=== PATIENT | female | born 1965 | race Caucasian/White ===

== ENCOUNTER 2019-12-29 18:39 | Emergency (ER) | payer BC ==
--- OUTSIDE RECORDS SUMMARY | 2019-12-29 19:21 | XMS REPORT | Summary of Care ---
:1965 Author Organization [facility] Address [address] [place] [address] Care Team Providers Name Role Phone Maribel Jimenez Primary Care Provider Reason for Referral Refer to Department Only (Routine) Status Reason Specialty Diagnoses / Referred By Referred To Procedures Contact Contact Pending Review Gastroenterology Diagnoses Right upper quadrant abdominal pain Maribel Jimenez [place] MD Gastroenterolog [address] y/Hepatology [place] [address] [employer] [address] [address] Phone: [place], [place] [phone] Fax: Scheduling Instructions BP 122/80 | Pulse 70 | Temp 98.3 F (36.8 C) | Ht 5' 3" (1.6 m) | Wt 161 lb 1.6 oz (73.1 kg) | LMP 07/26/2016 | SpO2 98% | BMI 28.54 kg/m BMI Readings from Last 4 Encounters: 12/04/19 : 28.54 kg/m 11/26/19 : 28.52 kg/m 10/07/19 : 28.80 kg/m 09/10/19 : 28.68 kg/m Controlled Substance Medications: Anticoagulant Medications: Psychiatric/Antianxiety Medications: escitalopram Antiretroviral Medications: Refer to Department Only (Routine) Status Reason Specialty Diagnoses / Referred By Referred To Procedures Contact Contact Pending Review Gastroenterology Diagnoses Right upper quadrant abdominal pain Maribel Jimenez [place] MD Gastroenterolog [address] y/Hepatology [place] [address] [employer] [address] [address] Phone: [place], [place] [phone] Fax: Scheduling Instructions BP 122/80 | Pulse 70 | Temp 98.3 F (36.8 C) | Ht 5' 3" (1.6 m) | Wt 161 lb 1.6 oz (73.1 kg) | LMP 07/26/2016 | SpO2 98% | BMI 28.54 kg/m BMI Readings from Last 4 Encounters: 12/04/19 : 28.54 kg/m 11/26/19 : 28.52 kg/m 10/07/19 : 28.80 kg/m 09/10/19 : 28.68 kg/m Controlled Substance Medications: Anticoagulant Medications: Psychiatric/Antianxiety Medications: escitalopram Antiretroviral Medications: Reason for Visit Reason Comments Sick nausea right upper abdomen pain (UA negative) Encounter Details Date Type Department Care Team Description 12/04/2019 Office Visit [facility] CrepetMaribel MD Right upper quadrant Medicine [address] [facility] abdominal pain [address] [place] [address] (Primary Dx) [place] [address] [phone] Allergies Active Allergy Reactions Severity Noted Date Comments Hydrochlorothiazide Other 10/07/2019 Disrupt sleep Phentermine [employer]GR[employer]ER Reaction 07/24/2012 Itchy,tingly fingers of arm and legs documented as of this encounter (statuses as of 12/04/2019) Medications Medication Sig Dispensed Refills Start Date End Date Status Cholecalciferol (VITAMIN Take 2,000 0 Active D) 1000 UNITS Oral Cap Units by mouth DAILY. lidocaine transdermal 1 Patch by 0 Active patch (LIDODERM) 5 % Topical route Apply externally Patch DAILY. 12 hours on and 12 hours off Magnesium 500 MG Oral Cap Take by mouth. 0 Active VALacyclovir 1 g Oral Tab Take 1 Tab by 14 Tab 0 04/27/2018 Active mouth EVERY TWELVE HOURS. B Complex Vitamins Take 1 Dose by 0 Active (VITAMIN B COMPLEX mouth DAILY. PO)Indications: Vitamin B 12 deficiency cyclobenzaprine Take 1 Tab by 60 Tab 1 09/23/2018 Active (FLEXERIL) 10 MG Oral mouth THREE TabIndications: TIMES DAILY Arthralgia of left NEEDED for acromioclavicular joint Muscle Spasm . lisinopril (PRINIVIL, Take 1 Tab by 90 Tab 3 06/18/2019 Active ZESTRIL) 20 MG Oral Tab mouth DAILY. Additional Information Patient taking differently: 10 mg Oral DAILY, Reported on 10/07/2019 11:11 AM albuterol HFA (VENTOLIN) 108 Take 2 Puffs by 1 Inhaler 3 09/10/2019 Active (90 Base) MCG/ACT Inhalation inhalation EVERY SIX Aero SolnIndications: Cough HOURS NEEDED (Cough / wheeze / tightness). diltiazem (DILTIAZEM CD) 120 Take 1 Cap by mouth 90 Cap 3 10/07/2019 Active MG Oral CAPSULE SR 24 DAILY. HRIndications: Essential hypertension escitalopram (LEXAPRO) 10 MG Take 1 Tab by mouth 90 Tab 2 10/07/2019 Active Oral TabIndications: DAILY. Depression, unspecified depression type documented as of this encounter (statuses as of 12/04/2019) Active Problems Problem Noted Date Cough variant asthma 09/10/2019 JB (obstructive sleep apnea) 01/09/2019 Overview: CPAP Through [employer] [place] [facility] [place] years ago Sprain of left ankle 08/04/2016 Gastroparesis 02/11/2016 Overview: Noted incidentally gallbladder ultrasound ambar Schatzki's ring of distal esophagus 02/11/2016 Overview: Addressed at upper endoscopy - Trupti 01/04 Closed nondisplaced fracture of lateral malleolus of left fibula with 2015 routine healing Vasovagal syncope 01/12/2016 Closed fracture of lateral malleolus of left fibula 01/04/2016 Essential hypertension 09/12/2010 Overview: Care plan done 12/07 Cerebral microvascular disease 07/29/2010 Migraine 10/02/2008 Dysplasia of cervix 10/02/2008 Polycystic ovary syndrome documented as of this encounter (statuses as of 12/04/2019) Immunizations Name Administration Dates Next Due Influenza (IM) Preservative Free 09/10/2019, 08/16/2015, 10/08/2014, 09/12/2010 Influenza Vaccine Whole 07/09/2013 MMR VACCINE 01/29/2013 TDAP Vaccine 10/23/2012 documented as of this encounter Social History Tobacco Use Types Packs/Day Years Used Date Never Smoker Smokeless Tobacco: Never Used Alcohol Use Drinks/Week oz/Week Comments Yes 0 Standard drinks or equivalent 0.0 Alcohol Habits Answer Date Recorded How often do you have a drink containing 4 or more times a week 11/26/2018 alcohol? How many drinks containing alcohol do you have Not asked on a typical day when you are drinking? How often do you have six or more drinks on one Not asked occasion? Sex Assigned at Date Recorded Not on file documented as of this encounter Last Filed Vital Signs Vital Sign Reading Time Taken Comments Blood Pressure 122/80 12/04/2019 1:33 PM EST Pulse 70 12/04/2019 1:33 PM EST Temperature 36.8 12/04/2019 1:33 PM EST C (98.3 F) Respiratory Rate - - Oxygen Saturation 98% 12/04/2019 1:33 PM EST Inhaled Oxygen Concentration - - Weight 73.1 kg (161 lb 1.6 oz) 12/04/2019 1:33 PM EST Height 160 cm (5' 3") 12/04/2019 1:33 PM EST Body Mass Index 28.54 12/04/2019 1:33 PM EST documented in this encounter Progress Notes Maribel Jimenez MD - 12/04/2019 2:00 PM EST NAME:Monika Ramachandran 1965: 1965 ENC Date: 12/04/2019 CC: Chief Complaint Patient presents with ? Sick nausea right upper abdomen pain (UA negative) Monika Ramachandran is a 54-y.o. female Ongoing complaints of abdominal discomfort : Recurrent episodes over the years - Last visit : several weeks of discomfort Years of flare ups of the right abdominal pain - has had ultrasounds in the past - This episode has been prolonged - Hot / burining sensation in the mid lower abdomen -- Low grade uncomfortable pain - No change in diet- ( elminating sugar ) ? sleeping on the back - ? Bowel movement ok / no cough - No association with foods History of Csections - Ct scan shows small bilateral femoral hernias ( right more than left ) ; stool throughout ; Severeintervertebral disk disease at L3-4 Current Outpatient Medications Medication Sig ? albuterol HFA (VENTOLIN) 108 (90 Base) MCG/ACT Inhalation Aero Soln Take 2 Puffs by inhalation EVERY SIX HOURS NEEDED (Cough / wheeze / tightness ). ? B Complex Vitamins (VITAMIN B COMPLEX PO) Take 1 Dose by mouth DAILY. ? Cholecalciferol (VITAMIN D) 1000 UNITS Oral Cap Take 2,000 Units by mouth DAILY. ? cyclobenzaprine (FLEXERIL) 10 MG Oral Tab Take 1 Tab by mouth THREE TIMES DAILY NEEDED for Muscle Spasm . ? diltiazem (DILTIAZEM CD) 120 MG Oral CAPSULE SR 24 HR Take 1 Cap by mouth DAILY. ? escitalopram (LEXAPRO) 10 MG Oral Tab Take 1 Tab by mouth DAILY. ? lidocaine transdermal patch (LIDODERM) 5 % Apply externally Patch 1 Patch by Topical route DAILY. 12 hours on and 12 hours off ? lisinopril (PRINIVIL, ZESTRIL) 20 MG Oral Tab Take 1 Tab by mouth DAILY. (Patient taking differently: Take 10 mg by mouth DAILY.) ? Magnesium 500 MG Oral Cap Take by mouth. ? VALacyclovir 1 g Oral Tab Take 1 Tab by mouth EVERY TWELVE HOURS. No current facility-administered medications for this visit. Patient Active Problem List Diagnosis Date Noted ? Cough variant asthma 09/10/2019 ? JB (obstructive sleep apnea) 01/09/2019 CPAP Through [employer] [place] [facility] [place] ago ? Sprain of left ankle 08/04/2016 ? Gastroparesis 02/11/2016 Noted incidentally gallbladder ultrasound stearns ? Schatzki's ring of distal esophagus 02/11/2016 Addressed at upper endoscopy - Trupti 01/04 ? Closed nondisplaced fracture of lateral malleolus of left fibula with routine healing 01/14/2016 ? Vasovagal syncope 01/12/2016 ? Closed fracture of lateral malleolus of left fibula 01/04/2016 ? Essential hypertension 09/12/2010 Care plan done 12/07 ? Cerebral microvascular disease 07/29/2010 ? Migraine 10/02/2008 ? Dysplasia of cervix 10/02/2008 ? Polycystic ovary syndrome Family History Problem Relation Age of Onset ? Hypertension Mother ? Arthritis Mother ? GI Mother ? Thyroid Mother ? Stroke Mother ? Alcohol/Drug Father No cardiopulmonary symptoms No upper or lower GI complaints No urinary tract symptoms. No bruising/ bleeding. No neurological complaints . No insomnia.+ . Social History Tobacco Use ? Smoking status: Never Smoker ? Smokeless tobacco: Never Used Substance Use Topics ? Alcohol use: Yes Alcohol/week: 0.0 standard drinks Frequency: 4 or more times a week ? Drug use: No OBJECTIVE: BP 122/80 | Pulse 70 | Temp 98.3 F (36.8 C) | Ht 5' 3" (1.6 m) | Wt 161 lb 1.6 oz (73.1 kg) | LMP 07/26/2016 | SpO2 98% | BMI 28.54 kg/m . Heent neg Neck no JVD, thyromegaly or bruit Lungs Clear CV rrr Tender to palpation R CVA Diffuse mild distention - Nontender to palpation over the lower abdomen - Femoral Hip rotation ok - Nontender to palpation over the spine- Abd soft, nontender, no organomegaly Ext no edema; no lesions; pulses intact Neuro: intellect intact ; motor including gait unremarkable A/P ICD-9-CM ICD-10-CM 1. Right upper quadrant abdominal pain 789.01 R10.11 URINE DIP MANUAL (AMB POCT ) HEPATITIS C ANTIBODY HEPATITIS C ANTIBODY REFER TO GI REFER TO GI Work up to this point unrevealing- Ct scan full of stool / bilateral small femoral hernias - Patient worried about mild hepatosplenomegaly There are no Patient Instructions on file for this visit. AUTHOR: Maribel Jimenez MD 14:10 12/04/2019 documented in this encounter Plan of Treatment Date Type Specialty Care Team Description 12/10/2019 Office Visit Internal Medicine Maribel Jimenez MD [address] [place] [address] [phone] 02/04/2020 Office Visit Internal Medicine Maribel Jimenez MD [address] [place] [address] [phone] Name Type Priority Associated Diagnoses Order Schedule HEPATITIS C ANTIBODY Lab Routine Right upper quadrant Expected: 12/04/2019 abdominal pain (Approximate), Expires: 12/04/2020 Name Type Priority Associated Diagnoses Order Schedule REFER TO GI Referral Routine Right upper quadrant Expected: 12/04/2019, abdominal pain Expires: 12/04/2020 REFER TO GI Referral Routine Right upper quadrant Expected: 12/04/2019, abdominal pain Expires: 12/04/2020 Health Maintenance Due Date Last Done Comments PAP SMEAR 11/26/2017 11/26/2014, 10/29/2013 (Postponed), 10/23/2012, Additional history exists LIPID DISORDER SCREENING 02/22/2020 02/21/2019, 11/26/2014, 10/29/2013, Additional history exists DEPRESSION SCREENING 06/18/2020 06/18/2019 MAMMOGRAM (SCREENING) 07/22/2020 07/22/2019, 06/28/2018, 03/15/2017, Additional history exists ZOSTER IMMUNIZATION SERIES 09/10/2020 Postponed from (1 of 2) 2013 (Vaccine not available) PNEUMOCOCCAL 0-64 YRS (1 of 10/07/2020 Postponed from 1 - PPSV23) 1969 (Patient refused) DIABETES SCREENING 11/26/2020 11/26/2019, 02/21/2019, 06/21/2017, Additional history exists DTaP/Tdap/Td Vaccines (2 - 10/23/2022 10/23/2012 Tdap) Colonoscopy 07/30/2023 07/30/2013, 07/30/2013, 07/30/2013, Additional history exists INFLUENZA VACCINE Completed 09/10/2019, 08/16/2015, 10/08/2014, Additional history exists HEPATITIS A IMMUNIZATION Aged Out No longer eligible SERIES based on patient's age to complete this topic HPV IMMUNIZATION SERIES Aged Out No longer eligible based on patient's age to complete this topic MENINGOCOCCAL VACCINE IMM Aged Out No longer eligible based on patient's age to complete this topic documented as of this encounter Goals Goal Patient Goal Associated Recent Patient-Stated? Author Type Problems Progress Blood Pressure Blood Pressure Essential 122/80 No C[place], < 140/90 hypertension (12/04/2019 MD Maribel 1:33 PM EST) Note: Hypertension Care Plan Based on the patient's clinical history and according to JNC 8 guidelines target blood pressure goal is less than 150/90. Based on the patient's last blood pressure of BP: 150/90 mmHg the patient is at above goal. As your provider, it is important that I advise you regarding: your current medications and help you with any challenges you may face taking your medications as directed (ex. instructions, cost, side effects, and interactions). Important lifestyle changes: exercise, weight reduction and dietary sodium reduction your clinical goals and how you can achieve success: weight reduction, exercise plan and diet improvements medication management: adjusted medications as appropriate patient education/self-management tools provided: Yes To successfully manage my Hypertension I will: monitor my blood pressure daily, understanding that my goal is less than 140/ 90 per my healthcare provider's recommendation. I will schedule an appointment with my provider if consistent abnormal readings greater than 160/100. take medications every day as prescribed by my healthcare provider and if unable to take them I will discuss with my provider. monitor for symptoms of chest pain, chest tightness/pressure, irregular heartbeat, persistent dizziness, radiating arm pain, and neck or jaw pain. If any of these symptoms are noticed I will seek medical attention immediately by calling 911 exercise/walk 45 minutes 4 day(s) per week. If I experience chest pain, chest tightness, or shortness of breath, I will seek medical attention immediately. follow a diet rich in fruits, vegetables, and low-fat dairy products with reduced content of saturated & total fat. I will reduce my sodium intake daily. An example is the DASH diet. To obtain more information please refer to the DASH Eating Plan listed in Educational Resources. record my blood pressure results. [employer] is safe and secure way for you to do this in your medical record online. try to obtain an ideal body weight. My recent weight was Weight: 160 lb ( 72.576 kg). My weight loss goal for my next office visit is 5 lbs . limit alcohol consumption. For men two drinks per day and women one drink per day. if currently smoking, will discuss how to quit smoking with my healthcare provider and work towards quitting. Educational Resources: National Heart, Lung, & Blood [place] http://nhlbi.nih.gov/hbp/index.html The DASH Diet Eating Plan http://www.nhlbi.nih.gov/health/health-topics/ topics/dash/ Academy of Nutrition & DIetetics http://eatright.org National Smoking Cessation Site http://smokefree.gov Blood Pressure < 140/90 Blood Pressure 122/80 (12/04/2019 1:33 Maribel Francis MD PM EST) Note: This is an individualized treatment (blood pressure) goal for Monika Morales: Displayed above (on the left) is your goal for blood pressure control. Your most recent blood pressure is also shown above, on the right. You should try to achieve blood pressures that are lower than your goal listed above (on the left). Depression screen (PHQ-9) total score < 5 Depression No Maribel Jimenez MD Note: This is an individualized treatment (depression) goal for Monika Morales: Displayed above is your goal for a depression screening (PHQ-9) score that would indicate good control of your depression. Keep a regular sleep schedule Lifestyle No Maribel Jimenez MD Note: This is an individualized lifestyle goal for Monika Morales: Please maintain a regular sleep schedule. This may help with some symptoms of depression. Take all prescribed medications as directed Self-management No Maribel Jimenez MD Note: This is an individualized self-management goal for Monika Ramachandran: Please take all prescribed medications as directed. 1. Do not skip doses. If you cannot afford your medications, talk with your doctor. 2. Use a pill reminder system such as a pill box if needed. Your pharmacist can help you with this. 3. Contact your Pharmacy 5 days before your medication runs out. If you cannot take your medications for any reasons, talk with your doctor. 4. Please bring all of your medication bottles and inhalers (or a list of all your medications/inhalers) with you to every visit. Potential barriers to meeting all of your care plan goals will continue to be addressed on an ongoing basis. documented as of this encounter Procedures Procedure Name Priority Date/Time Associated Diagnosis Comments URINE DIP MANUAL Routine 12/04/2019 1:37 PM Right upper quadrant Results for this (AMB POCT) EST abdominal pain procedure are in the results section. documented in this encounter Results URINE DIP MANUAL (AMB POCT) (12/04/2019 1:37 PM EST) URINE GLUCOSE (POCT) Negative Negative mg/dl [facility] POCT URINE BILIRUBIN Negative Negative [facility] (POCT) POCT Urine Ketones (POCT) Negative Negative [facility] POCT URINE SPECIFIC 1.005 1.005 - 1.030 [facility] GRAVITY (POCT) POCT URINE BLOOD (POCT) Negative Negative [facility] POCT URINE PH (POCT) 6.5 5.0 - 8.0 [facility] POCT URINE PROTEIN (POCT) Negative Negative mg/dl [facility] POCT URINE UROBILINOGEN 0.2 0.2 - 1.0 mg/dl [facility] (POCT) POCT URINE NITRITES (POCT) Negative Negative [facility] POCT URINE LEUKOCYTES Negative Negative Cells/uL [facility] (POCT) POCT Specimen Urine - Urine specimen (specimen) Performing Organization Address City/State/Zipcode Phone Number [facility] [address] [place] [address] documented in this encounter Visit Diagnoses Diagnosis Right upper quadrant abdominal pain Abdominal pain, right upper quadrant documented in this encounter Insurance Payer Benefit Plan / Subscriber ID Effective Dates Phone Address Type Group BCBS NATIONAL [facility] NATIONAL [id number] 2014-Present Blue Cross/Blue Shield Guarantor Name Account Type Relation to Date of Phone Billing Patient Address Nishant Ramachandran Personal/Family 1965 [address] [phone] [place], [place] (Work) [id number] documented as of this encounter
--- OUTSIDE RECORDS SUMMARY | 2019-12-29 19:21 | XMS REPORT | Summary of Care ---
:1965 Author Organization [facility] Address [address] [place] [address] Care Team Providers Name Role Phone Maribel Jimenez Primary Care Provider Reason for Referral MRI/CAT/PET Scan (Routine) Status Reason Specialty Diagnoses / Referred By Referred To Procedures Contact Contact Pending Review Diagnoses Abdominal pain, unspecified abdominal location Maribel Jimenez MD Procedures CT ABDOMEN PELVIS WITH IV CONTRAST [address] [place] [address] Reason for Visit Reason Comments Abdominal Pain right side radiating to abdomen and left side, belching Encounter Details Date Type Department Care Team Description 11/26/2019 Office Visit [place] [facility] Maribel Jimenez MD Abdominal pain, Medicine [address] [facility] unspecified abdominal [address] [place] [address] location (Primary Dx) [place] [address] [phone] Allergies Active Allergy Reactions Severity Noted Date Comments Hydrochlorothiazide Other 10/07/2019 Disrupt sleep Phentermine [employer] Reaction 07/24/2012 Itchy,tingly fingers of arm and legs documented as of this encounter (statuses as of 11/26/2019) Medications Medication Sig Dispensed Refills Start Date [...] 20 MG Oral Tab mouth DAILY. Additional information Patient taking differently: 10 mg Oral DAILY, Reported on 10/07/2019 11:11 AM albuterol HFA Take 2 Puffs by 1 Inhaler 3 09/10/2019 Active (VENTOLIN) 108 (90 inhalation EVERY Base) MCG/ACT SIX HOURS Inhalation Aero NEEDED (Cough / SolnIndications: Cough wheeze / tightness). diltiazem (DILTIAZEM Take 1 Cap by 90 Cap 3 10/07/2019 Active CD) 120 MG Oral mouth DAILY. CAPSULE SR 24 HRIndications: Essential hypertension escitalopram (LEXAPRO) Take 1 Tab by 90 Tab 2 10/07/2019 Active 10 MG Oral mouth DAILY. TabIndications: Depression, unspecified depression type escitalopram (LEXAPRO) Take 1 Tab by 60 Tab 1 09/10/201911/26/ 10 MG Oral mouth DAILY. 2019 (Duplicate Order) TabIndications: Depression, unspecified depression type documented as of this encounter (statuses as of 11/26/2019) Active Problems Problem Noted Date Cough variant asthma 09/10/2019 JB (obstructive sleep apnea) 01/09/2019 Overview: CPAP Through [employer] [place] [facility] [place] Sprain of left ankle [...] as of this encounter (statuses as of 11/26/2019) Immunizations Name Administration Dates Next Due Influenza [...] Assigned at Date Recorded Not on file Job Start Date Occupation Industry Not on file Not on file Not on file Travel History Travel Start Travel End No recent travel history available. documented as of this encounter Last Filed Vital Signs Vital Sign Reading Time Taken Comments Blood Pressure 130/82 11/26/2019 2:42 PM EST Pulse 79 11/26/2019 2:42 PM EST Temperature 36.9 11/26/2019 2:42 PM EST C (98.4 F) Respiratory Rate - - Oxygen Saturation 98% 11/26/2019 2:42 PM EST Inhaled Oxygen Concentration - - Weight 73 kg (161 lb) 11/26/2019 2:42 PM EST Height 160 cm (5' 3") 11/26/2019 2:42 PM EST Body Mass Index 28.52 11/26/2019 2:42 PM EST documented in this encounter Patient Instructions Patient InstructionsMaribel Jimenez MD - 11/26/2019 2:40 PM ESTAntiflatulant medication - Beano / Gas X/ Mylicon- documented in this encounter Progress Notes Maribel Jimenez MD - 11/26/2019 2:40 PM EST NAME:Monika Ramachandran 1965: 1965 ENC Date: 11/26/2019 CC: Chief Complaint Patient presents with Abdominal Pain right side radiating to abdomen and left side, belching Monika Ramachandran is a 54-y.o. female 2 weeks of discomfort this episode- Years of flare ups of the right abdominal pain - has had ultrasounds in the past - This episode has been prolonged - Hot / burining sensation in the mid lower abdomen -- Low grade uncomfortable pain - No change in diet- ( elminating sugar ) sleeping on the back - Bowel movement ok / no cough - No association with foods History of Csections - Current Outpatient Medications Medication Sig albuterol HFA (VENTOLIN) 108 (90 Base) MCG/ACT Inhalation Aero Soln Take 2 Puffs by inhalation EVERY SIX HOURS NEEDED (Cough / wheeze / tightness). B Complex Vitamins (VITAMIN B COMPLEX PO) Take 1 Dose by mouth DAILY. Cholecalciferol (VITAMIN D) 1000 UNITS Oral Cap Take 2,000 Units by mouth DAILY. cyclobenzaprine (FLEXERIL) 10 MG Oral Tab Take 1 Tab by mouth THREE TIMES DAILY NEEDED forMuscle Spasm . diltiazem (DILTIAZEM CD) 120 MG Oral CAPSULE SR 24 HR Take 1 Cap by mouth DAILY. escitalopram (LEXAPRO) 10 MG Oral Tab Take 1 Tab by mouth DAILY. lidocaine transdermal patch (LIDODERM) 5 % Apply externally Patch 1 Patch by Topical route DAILY. 12 hours on and 12 hours off lisinopril (PRINIVIL, ZESTRIL) 20 MG Oral Tab Take 1 Tab by mouth DAILY. (Patient taking differently: Take 10 mg by mouth DAILY.) Magnesium 500 MG Oral Cap Take by mouth. VALacyclovir 1 g Oral Tab Take 1 Tab by mouth EVERY TWELVE HOURS. No current facility-administered medications for this visit. Patient Active Problem List Diagnosis Date Noted Cough variant asthma 09/10/2019 JB (obstructive sleep apnea) 01/09/2019 CPAP Through [employer] [place] [facility] [place] Sprain of left ankle 08/04/2016 Gastroparesis 02/11/2016 Noted incidentally gallbladder ultrasound ambar Schatzki's ring of distal esophagus 02/11/2016 Addressed at upper endoscopy - T[place] 01/04 Closed nondisplaced fracture of lateral malleolus of left fibula with routine healing 01/14/2016 Vasovagal syncope 01/12/2016 Closed fracture of lateral malleolus of left fibula 01/04/2016 Essential hypertension 09/12/2010 Care plan done 12/07 Cerebral microvascular disease 07/29/2010 Migraine 10/02/2008 Dysplasia of cervix 10/02/2008 Polycystic ovary syndrome Family History Problem Relation Age of Onset Hypertension Mother Arthritis Mother GI Mother Thyroid Mother Stroke Mother Alcohol/Drug Father No cardiopulmonary symptoms No upper or lower GI complaints No urinary tract symptoms. No bruising/ bleeding. No neurological complaints . No insomnia.+ . Social History Tobacco Use Smoking status: Never Smoker Smokeless tobacco: Never Used Substance Use Topics Alcohol use: Yes Alcohol/week: 0.0 standard drinks Frequency: 4 or more times a week Drug use: No OBJECTIVE: BP 130/82 | Pulse 79 | Temp 98.4 F (36.9 C) | Ht 5' 3" (1.6 m) | Wt 161 lb (73 kg) | LMP 07/26/2016 | SpO2 98% | BMI 28.52 kg/m . Heent neg Neck no JVD, thyromegaly or bruit Lungs Clear CV rrr Mild right cva tenderness - Abd soft, n mild tender to deep palpation over the right upper quadrant And appendix area - Ext no edema; nt Neuro: intellect intact ; motor including gait unremarkable A/P ICD-9-CM ICD-10-CM 1. Abdominal pain, unspecified abdominal location 789.00 R10.9 URINE DIP MANUAL (AMB POCT) CT ABDOMEN PELVIS WITH IV CONTRAST CBC WITH DIFFERENTIAL COMPREHENSIVE METABOLIC PANEL CELIAC DISEASE PANEL Patient Instructions Antiflatulant medication - Beano / Gas X/ Mylicon- AUTHOR: Maribel Jimenez MD 15:15 11/26/2019 documented in this encounter Plan of Treatment Date Type Specialty Care Team Description 02/04/2020 Office Visit Internal Medicine Maribel Jimenez MD [address] [place] [address] [phone] Name Type Priority Associated Diagnoses Order Schedule CT ABDOMEN PELVIS WITH IV Imaging Routine Abdominal pain, Expected: CONTRAST unspecified abdominal 11/26/2019, Expires: location 11/25/2020 CBC WITH DIFFERENTIAL Lab Routine Abdominal pain, Expected: 11/26/2019 unspecified abdominal (Approximate), location Expires: 05/24/2020 COMPREHENSIVE METABOLIC Lab Routine Abdominal pain, Expected: 11/26/2019 PANEL unspecified abdominal (Approximate), location Expires: 05/24/2020 CELIAC DISEASE PANEL Lab Routine Abdominal pain, Expected: 11/26/2019 unspecified abdominal (Approximate), location Expires: 05/24/2020 Health Maintenance Due Date Last Done Comments PAP SMEAR 11/26/2017 11/26/2014, 10/29/2013 (Postponed), 10/23/2012, Additional history exists DIABETES SCREENING 02/22/2020 02/21/2019, 06/21/2017, 05/31/2016, Additional history exists LIPID DISORDER SCREENING 02/22/2020 02/21/2019, 11/26/2014, 10/29/2013, Additional history exists DEPRESSION SCREENING 06/18/2020 06/18/2019 MAMMOGRAM (SCREENING) 07/22/2020 07/22/2019, 06/28/2018, 03/15/2017, Additional history exists ZOSTER IMMUNIZATION SERIES 09/10/2020 Postponed from (1 of 2) 2013 (Vaccine not available) PNEUMOCOCCAL 0-64 YRS (1 of 10/07/2020 Postponed from 1 - PPSV23) 1969 (Patient refused) DTaP/Tdap/Td Vaccines (2 - 10/23/2022 10/23/2012 Tdap) [...] Problems Progress Blood Pressure Blood Pressure Essential 130/82 No Crepet, < 140/90 hypertension (11/26/2019 MD Maribel 2:42 PM EST) Note: Hypertension Care Plan Based [...] Educational Resources. record my blood pressure results. [employer] is safe and secure way for you [...] Educational Resources: National Heart, Lung, & Blood [place] http://nhlbi.nih.gov/hbp/index.html The DASH Diet Eating Plan http://www.nhlbi.nih.gov/health/health-topics/ topics/dash/ Academy of Nutrition & DIetetics http://eatright.org National Smoking Cessation Site http://smokefree.gov Blood Pressure < 140/90 Blood Pressure 130/82 (11/26/2019 2:42 No Maribel Jimenez MD PM EST) Note: This is an [...] Associated Diagnosis Comments URINE DIP MANUAL Routine 11/26/2019 2:40 PM Abdominal pain, Results for this (AMB POCT) EST unspecified procedure are in abdominal location the results section. documented in this encounter Results URINE DIP MANUAL (AMB POCT) (11/26/2019 2:40 PM EST) URINE GLUCOSE (POCT) Negative Negative mg/dl [facility] POCT URINE BILIRUBIN Negative Negative [facility] (POCT) POCT Urine Ketones (POCT) Negative Negative [facility] POCT URINE SPECIFIC 1.005 1.005 - 1.030 [facility] GRAVITY (POCT) POCT URINE BLOOD (POCT) Negative Negative [facility] POCT URINE PH (POCT) 6.0 5.0 - 8.0 [facility] POCT URINE PROTEIN (POCT) Negative Negative mg/dl [facility] POCT URINE UROBILINOGEN 0.2 0.2 - 1.0 mg/dl [facility] (POCT) POCT URINE NITRITES (POCT) Negative Negative [facility] POCT URINE LEUKOCYTES Small (A) Negative Cells/uL [facility] (POCT) POCT Specimen Urine - Urine specimen (specimen) Performing Organization Address City/State/Zipcode Phone Number [facility] [address] [place] [address] documented in this encounter Visit Diagnoses Diagnosis Abdominal pain, unspecified abdominal location documented in this encounter Insurance Payer Benefit Plan / Subscriber ID Effective Dates Phone Address Type Group BCBS NATIONAL BCBS NATIONAL xxxxxxxxxxxx 2014-Present Blue Cross/Blue Shield Guarantor Name Account Type Relation to Date of Phone Billing Patient Address [place] Personal/Family 1965 [facility] ([address] [phone] [place], [place] (Work) [address] documented as of this encounter
[2019-12-29 19:29] VITALS: BP 150/88
--- NOTE | 2019-12-29 20:02 | UC ---
Throat Pain/Nasal Reg HPI - HPI Summary HPI Summary: 54-year-old female comes in with a chief complaint of bronchitis symptoms. She' s had upper respiratory tract infection symptoms for about 8 days. She's been wheezing. She has been using her albuterol inhaler which does help with the wheezing. She has rhinorrhea and chest congestion saw that which is yellow. - History of Current Complaint Chief Complaint: UCGeneralIllness Stated Complaint: EAR PAIN, SINUS COMPLAINT Time Seen by Provider: 12/29/19 19:27 Hx Last Menstrual Period: 06/02/16 Pain Intensity: 4 - Allergies/Home Medications Allergies/Adverse Reactions: Allergies Allergy/AdvReac Type Severity Reaction Status Date / Time ipecac Allergy Vomiting Verified 12/29/19 19:31 promethazine Allergy Vomiting Verified 12/29/19 19:31 Home Medications: Home Medications Lidocaine PATCH 5%* [Lidoderm 5% Patch*] 1 patch TRANSDERM DAILY PRN 01/14/16 [ History Confirmed 12/29/19] Ascorbic Acid TAB* [Vitamin C TAB*] 500 mg PO DAILY 01/18/16 [History Confirmed 12/29/19] Cholecalciferol TAB* [Vitamin D TAB*] 400 unit PO DAILY 01/18/16 [History Confirmed 12/29/19] Vitamin B Complex TAB* [Complex B-100*] 1 tab PO DAILY 01/18/16 [History Confirmed 12/29/19] DOXYcycline CAP(*) [DOXYcycline 100MG CAP(*)] 100 mg PO BID #20 cap 12/29/19 [Rx ] Lisinopril TAB* [Prinivil TAB*] 20 mg PO DAILY 12/29/19 [History Confirmed 12/28] Magnesium CITRATE* [Citrate of Magnesia*] 500 mg PO BID 12/29/19 [History Confirmed 12/29/19] dilTIAZem HCl [Cartia Xt] 120 mg PO DAILY 12/29/19 [History Confirmed 12/29/19] guaiFENesin/CODIENE 100mg/10mg [Robitussin AC 100Mg/10Mg in 5 ml] 10 ml PO Q4H PRN #180 ml MDD 60ml 12/29/19 [Rx] predniSONE 20 mg TAB [Deltasone 20 MG TAB*] 40 mg PO DAILY #10 tab 12/29/19 [Rx] PMH/Surg Hx/FS Hx/Imm Hx Previously Healthy: Yes Cardiovascular History: Hypertension Respiratory History: Asthma - Surgical History Surgical History: Yes Surgery Procedure, Year, and Place: c section, - Family History Known Family History: Positive: Unknown - Social History Alcohol Use: Occasionally Substance Use Type: None Smoking Status (MU): Never Smoked Tobacco - Immunization History Most Recent Tetanus Shot: 2 yrs ago Review of Systems All Other Systems Reviewed And Are Negative: Yes Constitutional: Positive: Other - see hpi Skin: Positive: Negative Eyes: Positive: Negative ENT: Positive: Sore Throat, Nasal Discharge, Sinus Congestion Respiratory: Positive: Cough, Other - see hpi Cardiovascular: Positive: Negative Gastrointestinal: Positive: Negative Motor: Positive: Negative Neurovascular: Positive: Negative Musculoskeletal: Positive: Negative Neurological/Mental Status: Positive: Negative Psychological: Positive: Negative Is Patient Immunocompromised?: No Physical Exam Triage Information Reviewed: Yes Appearance: No Pain Distress, Well-Nourished, Ill-Appearing - mild Vital Signs: Initial Vital Signs Temp 98.5 F 12/29/19 19:22 Pulse 84 12/29/19 19:22 Resp 18 12/29/19 19:22 BP 150/88 12/29/19 19:22 Pulse Ox 98 12/29/19 19:22 Vital Signs Reviewed: Yes Eye Exam: Normal Eyes: Positive: Conjunctiva Clear ENT: Positive: Pharyngeal erythema, Nasal congestion, Nasal drainage, TMs normal Neck: Positive: Supple Respiratory: Positive: Lungs clear, Normal breath sounds, No respiratory distress Cardiovascular: Positive: RRR Musculoskeletal: Positive: Strength Intact, ROM Intact Neurological: Positive: Alert, Muscle Tone Normal Psychological: Positive: Age Appropriate Behavior Skin Exam: Normal Throat Pain/Nasal Course/Dx - Course Course Of Treatment: DISCUSSED VIRAL VERSES BACTERIAL INFECTIONS AND THE ROLE OF ANTIBIOTICS. THE PATIENT PREFERS TO BE ON ANTIBIOTICS AT THIS TIME. - Differential Dx/Diagnosis Provider Diagnosis: Bronchitis, Asthma Discharge ED - Sign-Out/Discharge Documenting (check all that apply): Patient Departure All imaging exams completed and their final reports reviewed: No Studies - Discharge Plan Condition: Stable Disposition: HOME Prescriptions: DOXYcycline CAP(*) [DOXYcycline 100MG CAP(*)] 100 mg PO BID #20 cap guaiFENesin/CODIENE 100mg/10mg [Robitussin AC 100Mg/10Mg in 5 ml] 10 ml PO Q4H PRN #180 ml MDD 60ml PRN Reason: Cough predniSONE 20 mg TAB [Deltasone 20 MG TAB*] 40 mg PO DAILY #10 tab Patient Education Materials: Asthma (ED), Acute Bronchitis (ED) Referrals: Maribel Jimenez MD [Primary Care Provider] - Additional Instructions: FOLLOW UP WITH YOUR DOCTOR IF NOT COMPLETELY IMPROVED. GET REEVALUATED SOONER IF NOT IMPROVED OR WORSE OR ANY QUESTIONS OR CONCERNS. - Billing Disposition and Condition Condition: STABLE Disposition: Home
== END 2019-12-29 20:12 | disposition home or self-care (01) ==
LOC: UCCORT 18:39
DX: J45.909 Unspecified asthma, uncomplicated (principal); R09.81 Nasal congestion; R09.89 Other specified symptoms and signs involving the circulatory and respiratory systems; I10 Essential (primary) hypertension; Z79.899 Other long term (current) drug therapy; Z88.8 Allergy status to other drugs, medicaments and biological substances
CPT/HCPCS: 99212; G0463

== ENCOUNTER 2023-12-11 16:50 | Observation (INO) ==
[2023-12-11 18:06] LABS: ABS Basophils 0.1 10^3/uL (0.0-0.1); ABS Eosinophils 0.3 10^3/uL (0.0-0.5); ABS Lymphocytes 2.7 10^3/uL (1.0-4.8); ABS Monocytes 0.5 10^3/uL (0.0-0.9); ABS Neutrophils 3.1 10^3/uL (1.5-7.6); Eosinophil % 4.7 %; Hematocrit 39.7 % (35-45); Hemoglobin 13.4 g/dL (11.5-14.3); Lymphocyte % 39.8 %; Mean Corpuscular Hemoglobin 29.7 pg (27-33); Mean Corpuscular Hgb Conc 33.7 g/dL (31-36); Mean Corpuscular Volume 88.1 fL (80-97); Mean Platelet Volume 6.8 fL (7.5-11.2); Nucleated Red Blood Cells % 0.1 %/100WBC (0.0-0.8); Platelet Count 453 10^3/uL (150-450); Red Cell Distribution Width 13.6 % (12-17); White Blood Count 6.7 10^3/uL (3.8-11.8)
[2023-12-11 18:30] LABS: Albumin 4.9 g/dL (3.2-5.2); Calcium 9.9 mg/dL (8.6-10.3); Creatinine, Serum 0.72 mg/dL (0.51-0.95); Globulin 2.5 g/dL (2-4); Magnesium 2.3 mg/dL (1.9-2.7); Potassium 3.8 mmol/L (3.5-5.0); Total Protein 7.4 g/dL (6.4-8.9); eGFR CKD-EPI 95.7 (>60)
[2023-12-11 18:31] LABS: Total Bilirubin 0.3 mg/dL (0.2-1.0)
[2023-12-11 18:44] LABS: TSH Ultra Thyroid Stim Horm 1.24 mcIU/mL (0.34-5.60)
[2023-12-11] MEDS ORDERED: Albuterol HFA INHALER 8 gm MDI INH PRN (21:27)
[2023-12-11 21:39] LABS: High Sensitivity Troponin 1 Hr < 3 pg/mL (<15)
[2023-12-11] MEDS ORDERED: Mometasone 220 MCG MDI INH PRN (21:41)
[2023-12-12 05:07] LABS: Calcium 9.1 mg/dL (8.6-10.3); Creatinine, Serum 0.78 mg/dL (0.51-0.95); Potassium 4.3 mmol/L (3.5-5.0); eGFR CKD-EPI 86.9 (>60)
[2023-12-12] MEDS ORDERED: dilTIAZem ER 120 mg CAP (NF) PO SCH (09:00)
[2023-12-12] MEDS: Aspirin EC 81 mg TAB.EC (enteric coated) PO SCH (10:01)
[2023-12-12 20:28] VITALS: BP 166/94
== END 2023-12-12 21:50 | disposition home or self-care (01) ==
LOC: ED 16:50 → EDHOLD 16:50 → SUATTDRO 19:35 → MEDTELE 12-12 19:41 → EDHOLD 12-12 19:41 → MEDTELE 12-12 21:50
PROVIDERS: ADMIT Student in an Organized Health Care Education/Training Program; ATTEND Student in an Organized Health Care Education/Training Program